=== PATIENT | male | born 1995 | race Hispanic/Latino ===

== ENCOUNTER 2017-09-22 21:06 | Emergency (ER) | payer BC ==
[~2017-09-22] VITALS: Ht 177.8 cm; Wt 72.6 kg
--- OUTSIDE RECORDS SUMMARY | 2017-09-22 21:09 | XMS REPORT ---
Author Author [facility] Address Unknown Phone Unavailable Care Team Providers Care Faculty Dean Name Role Phone Unavailable Unavailable Problems This patient has no known problems. Allergies, Adverse Reactions, Alerts This patient has no known allergies or adverse reactions. Medications This patient has no known medications. Encounters Start Date/Time End Date/Time Encounter Type Admission Type Attending Clinicians [facility] Facility Care Department Encounter ID 2016-11-13 00:00:00 2016-11-13 00:00:[address] [facility] [id number]
== END 2017-09-22 21:49 | disposition home or self-care (01) ==
LOC: FSED 21:06
DX: A63.0 Anogenital (venereal) warts (principal)
CPT/HCPCS: 81003; 87491; 87591; 99282